=== PATIENT | male | born 1960 | race Caucasian/White ===

== ENCOUNTER 2017-11-18 12:36 | Emergency (ER) | payer BC ==
[~2017-11-18] VITALS: Ht 175.3 cm; Wt 97.7 kg
[~2017-11-18 12:36] MED LIST: NOHOMEMEDS
[2017-11-18 13:42] LABS: HEMATOCRIT 44.5 % (38.0-50.0); HEMOGLOBIN 15.6 G/DL (12.5-16.6); MCH 33.8 PG (29.0-34.0); MCHC 35.1 G/DL (30.0-36.0); MCV 96.3 FL (86-99); PLATELET COUNT 164 K/uL (156-360); RBC DIS.WIDTH-CV 12.4 % (11.8-14.6); RBC DIS.WIDTH-SD 43.6 % (39-53); RED BLOOD COUNT 4.62 M/uL (4.00-5.50); WHITE BLOOD COUNT 10.1 K/uL (4.1-10.2)
[2017-11-18 13:49] LABS: CHLORIDE 107 mEq/L (99-109); POTASSIUM 4.4 mEq/L (3.7-5.4); SODIUM 136 mEq/L (136-147)
[2017-11-18 13:51] LABS: GLUCOSE 279 mg/dL (70-99)
[2017-11-18 13:55] LABS: CREATININE 1.2 mg/dL (0.6-1.3); GFR ESTIMATE (CALCULATED) > 59 mL/min/ (58.99-99999)
[2017-11-18 13:56] LABS: UREA NITROGEN (BUN) 19 mg/dL (9-23)
[2017-11-18 14:04] LABS: TROP-I INTERPRETATION NEGATIVE; TROPONIN-I 0.02 ng/mL (0.0-0.30)
[2017-11-18 15:31] LABS: THYROTROPIN (TSH) 3.3 MIU/L (0.4-5.5)
[2017-11-18] MEDS ORDERED: TOPROL XL50 MG PO (16:38)
[2017-11-18] MEDS ORDERED: XARELTO1 EACH PO (16:38)
[2017-11-18] MEDS ORDERED: LASIX20 MG PO (17:33)
[2017-11-18 18:01] VITALS: BP 139/96
== END 2017-11-18 18:03 | disposition home or self-care (01) ==
LOC: EME 12:36 → RME 12:36
PROVIDERS: Physician Assistant Medical
DX: I48.91 Unspecified atrial fibrillation (principal); J90 Pleural effusion, not elsewhere classified; J98.11 Atelectasis; I51.7 Cardiomegaly; R59.1 Generalized enlarged lymph nodes; Z87.891 Personal history of nicotine dependence; Z82.49 Family history of ischemic heart disease and other diseases of the circulatory system
CPT/HCPCS: 71046; 71275; 80048; 84443; 84484; 85027; 85379; 93005

== ENCOUNTER 2017-12-17 09:28 | Day surgery (SDC) | payer BC ==
[~2017-12-17] VITALS: Ht 175.3 cm; Wt 90.7 kg
[~2017-12-17 09:28] MED LIST changes: +LASIX20 MG PO; +TOPROL XL50 MG PO; +XARELTO1 EACH PO; +XARELTO20 MG PO
== END 2017-12-17 11:53 | disposition home or self-care (01) ==
LOC: CATH 09:28
PROC: 5A2204Z Restoration of Cardiac Rhythm, Single (ICD-10-PCS; principal; 2017-12-17)
DX: I48.1 Persistent atrial fibrillation (principal); I10 Essential (primary) hypertension; Z79.01 Long term (current) use of anticoagulants; Z87.891 Personal history of nicotine dependence
CPT/HCPCS: 93005